=== PATIENT | female | born 1930 | race American Indian/Alaskan Native ===

== ENCOUNTER 2016-06-28 21:47 | Inpatient (IN) | payer MEDICARE ==
[2016-06-28] MEDS ORDERED: BABY ASPIRIN PO ONE (22:07)
--- NOTE | 2016-06-28 22:12 | Emergency Department Report ---
ED Chest Pain HPI - General Chief Complaint: Chest Pain Stated Complaint: CHEST PAIN Time Seen by Provider: 06/28/16 22:00 Source: patient, family, EMS Mode of arrival: Stretcher Limitations: Other (dementia) - History of Present Illness Initial Comments: 86-year-old female presents to the emergency department via EMS for evaluation of chest pain. Patient states she was having chest pain earlier today, but this has resolved. Patient states the pain was located on the left side and did not radiate. Patient is unable to describe the quality of the pain. Patient states that she had no associated shortness of breath, dizziness, diaphoresis, nausea, or vomiting. Family at bedside states the patient was diaphoretic earlier. There are no other complaints. MD Complaint: chest pain -: Gradual, This morning Onset: during rest Pain Location: left chest Pain Radiation: none Severity: moderate Consistency: constant, now resolved Improves With: nothing Worsens With: nothing re: diaphoresis. denies: nausea, vomting, dyspnea Treatments Prior to Arrival: none Aspirin use within the Past 7 Days: (1) Yes - Related Data Home Medications Medication Instructions Recorded Confirmed Last Taken Donepezil [Aricept] 1 tab PO QDAY 04/15/14 06/28/16 06/28/16 Memantine (Nf) [Namenda] 1 tab PO BID 04/15/14 06/28/16 06/28/16 Metoprolol [Lopressor TAB] 1 tab PO BID 04/15/14 06/28/16 06/28/16 Spironolactone 1 tab PO QDAY 04/15/14 06/28/16 06/28/16 hydrALAZINE [Apresoline TAB] 1 tab PO TID 04/15/14 06/28/16 06/28/16 Aspirin [Aspirin BABY CHEW TAB] 162 mg PO QDAY 06/28/16 06/28/16 06/28/16 Levofloxacin [Levaquin TAB] 250 mg PO QDAY 06/28/16 06/28/16 06/28/16 Mirabegron [Myrbetriq] 25 mg PO QDAY 06/28/16 06/28/16 06/28/16 Ondansetron HCl [Ondansetron TAB] 4 mg PO ONCE 06/28/16 06/28/16 06/28/16 Phenazopyridine [Pyridium] 200 mg PO TID 06/28/16 06/28/16 06/28/16 Allergies Allergy/AdvReac Type Severity Reaction Status Date / Time codeine Allergy Unknown Verified 04/15/14 23:48 Penicillins Allergy Unknown Verified 04/15/14 23:48 NIXON score - Nixon Score Age > 65: (1) Yes Aspirin use within the Past 7 Days: (1) Yes 3 or more CAD Risk Factors: (1) Yes 2 or more Angina events in past 24 hrs: (0) No Known CAD with more than 50% Stenosis: (0) No Elevated Cardiac Markers: (0) No ST Deviation Greater than 0.5mm: (0) No NIXON Score: 3 ED Review of Systems ROS: Stated complaint: CHEST PAIN Other details as noted in HPI Comment: All other systems reviewed and negative Constitutional: diaphoresis Cardiovascular: chest pain ED Past Medical Hx - Past Medical History Previous Medical History?: Yes Hx Hypertension: Yes Hx Heart Attack/AMI: Yes Hx Diabetes: Yes Hx Dementia: Yes Additional medical history: CAD - Surgical History Past Surgical History?: Yes Hx Open Heart Surgery: Yes (Triple Bypass Surgery) Hx Cholecystectomy: Yes Additional Surgical History: Thyroid removal, x 2 - Family History Family history: no significant - Social History Smoking Status: Never Smoker Substance Use Type: None - Medications Home Medications: Home Medications Medication Instructions Recorded Confirmed Last Taken Type Donepezil [Aricept] 1 tab PO QDAY 04/15/14 06/28/16 06/28/16 History Memantine (Nf) [Namenda] 1 tab PO BID 04/15/14 06/28/16 06/28/16 History Metoprolol [Lopressor TAB] 1 tab PO BID 04/15/14 06/28/16 06/28/16 History Spironolactone 1 tab PO QDAY 04/15/14 06/28/16 06/28/16 History hydrALAZINE [Apresoline TAB] 1 tab PO TID 04/15/14 06/28/16 06/28/16 History Aspirin [Aspirin BABY CHEW TAB] 162 mg PO QDAY 06/28/16 06/28/16 06/28/16 History Levofloxacin [Levaquin TAB] 250 mg PO QDAY 06/28/16 06/28/16 06/28/16 History Mirabegron [Myrbetriq] 25 mg PO QDAY 06/28/16 06/28/16 06/28/16 History Ondansetron HCl [Ondansetron TAB] 4 mg PO ONCE 06/28/16 06/28/16 06/28/16 History Phenazopyridine [Pyridium] 200 mg PO TID 06/28/16 06/28/16 06/28/16 History ED Physical Exam - General Limitations: No Limitations General appearance: alert, in no apparent distress - Head Head exam: Present: atraumatic, normocephalic - Eye Eye exam: Present: normal appearance, PERRL, EOMI - ENT ENT exam: Present: normal exam, normal orophraynx, mucous membranes moist - Neck Neck exam: Present: normal inspection, full ROM. Absent: tenderness - Respiratory Respiratory exam: Present: normal lung sounds bilaterally. Absent: respiratory distress, chest wall tenderness - Cardiovascular Cardiovascular Exam: Present: regular rate, normal rhythm, normal heart sounds - GI/Abdominal GI/Abdominal exam: Present: soft, normal bowel sounds. Absent: distended, tenderness - Extremities Exam Extremities exam: Present: normal inspection, full ROM. Absent: tenderness - Back Exam Back exam: Present: normal inspection, full ROM. Absent: tenderness - Neurological Exam Neurological exam: Present: alert. Absent: motor sensory deficit - Skin Skin exam: Present: warm, dry, intact ED Course Vital Signs 06/28/16 22:26 Temperature 98.1 F Pulse Rate 61 Respiratory 14 Rate Blood Pressure 173/71 [Left] O2 Sat by Pulse 98 Oximetry ED Medical Decision Making - Lab Data Result diagrams: 06/28/16 22:20 06/28/16 22:20 - EKG Data -: EKG Interpreted by Me EKG shows normal: sinus rhythm, axis, intervals, QRS complexes, ST-T waves Rate: normal - EKG Data When compared to previous EKG there are: previous EKG unavailable Interpretation: normal EKG - Radiology Data Radiology results: image reviewed interpreted by me: Chest x-ray shows no acute cardiopulmonary abnormality. - Medical Decision Making Lab and imaging results reviewed and discussed with the patient. I spoke with Dr. Alex, cardiology. Patient is to be admitted by the hospitalist. - Differential Diagnosis ACS, atypical chest pain, chest wall pain Critical care attestation.: If time is entered above; I have spent that time in minutes in the direct care of this critically ill patient, excluding procedure time. ED Disposition Clinical Impression: Precordial chest pain Disposition: OP ADMITTED IP TO THIS HOSP Is pt being admited?: Yes Condition: Stable Instructions: Chest Pain (ED) Time of Disposition: 23:18
[2016-06-28 22:33] LABS: Basophils % (Auto) 0.4 % (0.0-1.8); Eosinophils % (Auto) 0.1 % (0.0-4.3); Hematocrit 25.8 % (30.3-42.9); Hemoglobin 8.7 gm/dl (10.1-14.3); Mean Corpuscular HGB Conc 34 % (30-34); Mean Corpuscular Hemoglobin 32 pg (28-32); Mean Corpuscular Volume 93 fl (79-97); Platelet Count 147 K/mm3 (140-440); Red Blood Count 2.77 M/mm3 (3.65-5.03); Red Cell Distribution Width 15.1 % (13.2-15.2)
[2016-06-28 22:42] LABS: INR 1.05 (0.87-1.13)
[2016-06-28 22:43] LABS: Partial Thromboplastin Time 30.8 Sec. (24.2-36.6)
[2016-06-28 22:55] LABS: Albumin 3.9 g/dL (3.9-5); Albumin/Globulin Ratio 1.3 %; BUN/Creatinine Ratio 30.58; Bilirubin,Total 0.3 mg/dL (0.1-1.2); Calcium 8.9 mg/dL (8.4-10.2); Chloride 101.7 mmol/L (98-107); Potassium 4.8 mmol/L (3.6-5.0)
[2016-06-28] MEDS ORDERED: TYLENOL ONE (23:49)
[2016-06-28] MEDS ORDERED: MILK OF MAGNESIA PO PRN (23:58)
[2016-06-28] MEDS ORDERED: D50W (25GM) IV PRN (23:58)
[2016-06-28] MEDS ORDERED: DULCOLAX PR PRN (23:58)
[2016-06-28] MEDS ORDERED: ZOFRAN IV PRN (23:58)
[2016-06-28] MEDS ORDERED: TYLENOL PO PRN (23:58)
[2016-06-29] MEDS ORDERED: TYLENOL PO ONE (00:02)
--- NOTE | 2016-06-29 00:02 | History and Physical Report ---
History of Present Illness Date of examination: 06/28/16 History of present illness: 86-year-old woman with a history of coronary artery disease, hypertension, diabetes, A. fib, dementia was brought to the emergency room with complaints of chest pain. Pain is in the epigastric area which started today, she is unable to describe the pain, it is been intermittent in nature, unable to say how long it lasts for, intensity 5/10, no radiation and she cannot identify exacerbating or relieving factors. She denies nausea vomiting, shortness breath, diaphoresis or palpitation Patient denies cough, abdominal pain, hematochezia, dysuria, frequency, focal weakness, dysarthria, fever chills, polydipsia polyuria, hot or cold intolerance , easy bruisability, or rash or bleeding from mucosal membrane, rhinorrhea, epistaxis, earache, tinnitus, blurry vision, eye discharge, anxiety, depression. Other review of systems negative PAST SURGICAL HISTORY: , CABG, thyroidectomy, cholecystectomy SOCIAL HISTORY: Denies alcohol, tobacco, drugs FAMILY HISTORY: Hypertension, diabetes Medications and Allergies Allergies Allergy/AdvReac Type Severity Reaction Status Date / Time codeine Allergy Unknown Verified 04/15/14 23:48 Penicillins Allergy Unknown Verified 04/15/14 23:48 Home Medications Medication Instructions Recorded Confirmed Last Taken Type Donepezil [Aricept] 1 tab PO QDAY 04/15/14 06/28/16 06/28/16 History Memantine (Nf) [Namenda] 1 tab PO BID 04/15/14 06/28/16 06/28/16 History Metoprolol [Lopressor TAB] 1 tab PO BID 04/15/14 06/28/16 06/28/16 History Spironolactone 1 tab PO QDAY 04/15/14 06/28/16 06/28/16 History hydrALAZINE [Apresoline TAB] 1 tab PO TID 04/15/14 06/28/16 06/28/16 History Aspirin [Aspirin BABY CHEW TAB] 162 mg PO QDAY 06/28/16 06/28/16 06/28/16 History Levofloxacin [Levaquin TAB] 250 mg PO QDAY 06/28/16 06/28/16 06/28/16 History Mirabegron [Myrbetriq] 25 mg PO QDAY 06/28/16 06/28/16 06/28/16 History Ondansetron HCl [Ondansetron TAB] 4 mg PO ONCE 06/28/16 06/28/16 06/28/16 History Phenazopyridine [Pyridium] 200 mg PO TID 06/28/16 06/28/16 06/28/16 History Active Meds: Active Medications Aspirin (Baby Aspirin) 162 mg PO QDAY [facility] Donepezil HCl (Aricept) 5 mg PO QDAY [facility] Metoprolol Tartrate (Lopressor) 25 mg PO BID [facility] Miscellaneous Medication (Memantine (Nf) [Namenda (Nf)]) 1 tab PO BID [facility] Miscellaneous Medication (Mirabegron [Myrbetriq]) 25 mg PO QDAY [facility] Exam - Physical Exam Narrative exam: Gen. appearance: Patient lying in bed, no apparent distress HEENT: Normocephalic, atraumatic, pupils equally round and reactive to light, extraocular movement intact, and no sclericterus,. No JVD or thyromegaly or nodule,neck supple, no carotid bruit ,mucous membranes moist, no exudate or erythema Heart: S1, S2, regular rate and rhythm Lungs: Clear to auscultation bilaterally, breathing comfortable Abdomen: Positive bowel sounds, nontender, nondistended, no organomegaly Extremity: No edema, cyanosis, clubbing Skin: No rash, nodules, warm, dry Neuro: Oriented 3, cranial nerves II-12 intact, speech is fluent, motor and sensory intact - Constitutional Vitals: Temp Pulse Resp BP Pulse Ox 98.1 F 61 14 173/71 99 06/28/16 22:26 06/28/16 22:26 06/28/16 22:26 06/28/16 22:26 06/28/16 22:26 Results - Labs CBC & Chem 7: 06/28/16 22:20 06/28/16 22:20 Labs: Abnormal lab results 06/28/16 06/28/16 Range/Units 22:20 22:20 RBC 2.77 L (3.65-5.03) M/mm3 Hgb 8.7 L (10.1-14.3) gm/dl Hct 25.8 L (30.3-42.9) % Lymph % (Auto) 9.2 L (13.4-35.0) % [place] % (Auto) 9.8 H (0.0-7.3) % Lymph # 0.8 L (1.2-5.4) K/mm3 [place] # 0.9 H (0.0-0.8) K/mm3 Seg Neutrophils % 80.5 H (40.0-70.0) % Sodium 136 L (137-145) mmol/L Carbon Dioxide 20 L (22-30) mmol/L BUN 52 H (7-17) mg/dL Creatinine 1.7 H (0.7-1.2) mg/dL Glucose 140 H (65-100) mg/dL - Imaging and Cardiology EKG: image reviewed Chest x-ray: image reviewed Assessment and Plan Unstable angina Coronary artery disease Hypertension Diabetes A. fib Chronic kidney disease Admit to medicine Check cardiac enzymes, liver profile, consult cardiology Check fingersticks and initiate insulin sliding scale Continue appropriate outpatient medication, start DVT prophylaxis
--- NOTE | 2016-06-29 00:10 | Admit Criteria Form ---
Admission Criteria Documentation: CHEST PAIN Clinical Indications for Admission to Inpatient Care (Place 'X' for any and all applicable criteria): Admission is indicated for chest pain and ANY ONE of the following(1)(2)(3)(4)(5 ): [ ]I. Angina with acute coronary syndrome (Also use Myocardial Infarction or Angina guideline) [ ]II. Hemodynamic instability [ ]III. Angina needing acute intervention as indicated by ALL of the following( 11)(12): [ ]a) Unstable angina is present as indicated by angina that is ANY ONE of the following: [ ]i) New onset [ ]ii) Nocturnal [ ]iii) Prolonged at rest [ ]iv) Progressive [ ]b) Angina warrants acute intervention as indicated by ANY ONE of the following: [ ]i) Recurrent angina (e.g, not responding as previously to treatment) [ ]ii) Angina at rest or with low-level activities despite initial medical therapy [ ]iii) New or presumably new ST-segment depression on ECG [ ]iv) Signs or symptoms of heart failure (eg, dyspnea, pulmonary edema) [ ]v) New or worsening mitral regurgitation [ ]vi) Hemodynamic instability [ ]vii) Dangerous arrhythmia (eg, sustained ventricular tachycardia) [ ]viii) History of percutaneous coronary intervention within 6 months [ ]ix) History of coronary artery bypass graft surgery [ ]x) NXION risk score of 2 or greater[A] [ ]xi) History of Diabetes(14) [ ]xii) High-risk cardiac ischemia findings on noninvasive testing (e.g, echocardiogram, treadmill testing, nuclear scan) [ ]xiii) Chronic renal insufficiency (ie, estimated GFR less than 60 mL/min/1.732m) [ ]xiv) Left ventricular ejection fraction less than 40% [ ]IV. Evidence of NH (eg, cardiac biomarkers positive, ST-segment elevation on ECG) also use Myocardial Infarction Criteria Form. [ ]V. Pulmonary edema [ ]. Respiratory distress [ ]VII. Chest pain indicative of serious diagnosis other than coronary artery disease (eg, aortic dissection) [ ]VIII. Contraindications and/or Inappropriate clinical situations for Observational Care in patients with Chest Pain, when ANY ONE of the following is required: [ ]a) Patient with risk factor for pulmonary embolism, acute coronary syndrome and myocardial infarction (18) [ ]b) Patient with Pulmonary embolism require an average LOS of 4.3 days, therefore emergency department observation management is inappropriate 18,23 [ ]c) Painful condition/s in the elderly, have the highest rate of recidivism after emergency department observation management (10.8%) 20,21,22 [ ]d) Elevated cardiac biomarker requires intensive and exhaustive care (19) [X ]IX. General contraindications and/or Inappropriate clinical situations for Observational Care in patients with Chest Pain, when ANY ONE of the following is required: [ X]a) Prediction of prolongation of LOS based on ANY ONE of the following may be considered as a contraindication for observational care 2, 3, 4, 5, 6, 7, 8, 9, 10, 11 [X ]i) Age > 65 yrs. [ ]ii) Patient arriving by ambulance [ ]iii) Patient with high acuity [ ]iv) Patient requiring vital sign monitoring [ X]v) Patient on IV medication [ ]b) Systolic blood pressures 180mmHg 3,12 [ ]c) Patient with altered mental status including delirium and other alteration of consciousness, (3) [ ]d) Patient whose discharge disposition will be to a snf home or rehabilitation home should not be managed in Emergency Department Observation Unit. CMS rule requires 3 days hospital stay before such placement. 3,13 [ ]e) Patient with failure to thrive due to broad array of etiologies 3,16,17 [ ]f) Inability to ambulate 3,14 Extended stay beyond goal length of stay may be needed for (1)(28): [ ]a) Specific condition diagnosed after evaluation (eg, pulmonary embolism, aortic dissection) [ ]b) Unstable angina [ ]c) Continued suspicion of acute coronary syndrome with inability to complete needed cardiac evaluation (eg, patient clinically unable to undergo stress testing) [ ]d) Myocardial infarction (Contents from ANGINA and CHEST PAIN clinical indications for admission to inpatient care have been integrated in this form) The original [employer] content created by [employer] has been revised. The portions of the content which have been revised are identified through the use of italic text or in bold, and [facility] [employer] has neither reviewed nor approved the modified material. All other unmodified content is copyright [employer]. Please see references footnoted in the original [facility] edition 2016 Admission Criteria Met: Yes
[2016-06-29 03:41] LABS: Creatine Kinase MB 3.8 ng/mL (0.0-4.0)
[2016-06-29] MEDS: NOVOLOG SUB-Q SCH ×4 (07:30→22:07)
--- NOTE | 2016-06-29 08:19 | XRay Report ---
PORTABLE CHEST INDICATION: Chest pain. COMPARISON: 08/17/2015 FINDINGS: Portable, frontal chest radiograph demonstrates increased crowding of lung markings, left more than right. Subtle hazy blunting of the costophrenic angles, right more than left also not excluded for trace pleural effusions. Minimal fluid or thickening along the right minor fissure again noted as also post CABG changes, cardiomediastinal silhouette, aortic knob calcifications and demineralized bones with few degenerative changes. EKG leads. CONCLUSION: Slight pulmonary vascular congestion not entirely excluded developing versus technical, as described. Please also correlate clinically and on future, PA and lateral radiographs, if obtainable. Thank you for the opportunity to participate in this patient's care.
[2016-06-29] MEDS ORDERED: NON-FORMULARY (Mirabegron [Myrbetriq] 25 MG) PO SCH (10:00)
[2016-06-29] MEDS: LOPRESSOR PO SCH ×2 (10:00→22:05)
[2016-06-29] MEDS ORDERED: MEMANTINE PO SCH (10:00)
[2016-06-29 10:02] LABS: Creatine Kinase MB 3.8 ng/mL (0.0-4.0)
[2016-06-29] MEDS: LOVENOX SUB-Q SCH (10:34)
[2016-06-29] MEDS: ARICEPT PO SCH (10:34)
[2016-06-29] MEDS: BABY ASPIRIN PO SCH (10:35)
[2016-06-29] MEDS: NAMENDA XR PO SCH (10:41)
--- NOTE | 2016-06-29 11:47 | Consultation ---
History of Present Illness Consult date: 06/29/16 Consult reason: chest pain History of present illness: This is an 86yr old woman with a history of advance dementia who is admitted with chest pain. History unobtainable. Daughter at bedside reports the patient was clinching her chest and complaining of chest pain and shortness of breath. EMS was called and the patient was brought in for evaluation. No acute ischemic changes on her ECG. Cycled cardiac enzymes are normal. Noted a HCT of 25 and creatinine of 1.7 on initial workup in the ED. Cardiac consultation requested for chest pain evaluation. Medications and Allergies Allergies Allergy/AdvReac Type Severity Reaction Status Date / Time codeine Allergy Unknown Verified 04/15/14 23:48 Penicillins Allergy Unknown Verified 04/15/14 23:48 Home Medications Medication Instructions Recorded Confirmed Last Taken Type Donepezil [Aricept] 1 tab PO QDAY 04/15/14 06/28/16 06/28/16 History Memantine (Nf) [Namenda] 1 tab PO BID 04/15/14 06/28/16 06/28/16 History Metoprolol [Lopressor TAB] 1 tab PO BID 04/15/14 06/28/16 06/28/16 History Spironolactone 1 tab PO QDAY 04/15/14 06/28/16 06/28/16 History hydrALAZINE [Apresoline TAB] 1 tab PO TID 04/15/14 06/28/16 06/28/16 History Aspirin [Aspirin BABY CHEW TAB] 162 mg PO QDAY 06/28/16 06/28/16 06/28/16 History Levofloxacin [Levaquin TAB] 250 mg PO QDAY 06/28/16 06/28/16 06/28/16 History Mirabegron [Myrbetriq] 25 mg PO QDAY 06/28/16 06/28/16 06/28/16 History Ondansetron HCl [Ondansetron TAB] 4 mg PO ONCE 06/28/16 06/28/16 06/28/16 History Phenazopyridine [Pyridium] 200 mg PO TID 06/28/16 06/28/16 06/28/16 History Active Meds: Active Medications Acetaminophen (Tylenol) 650 mg PO Q4H PRN PRN Reason: Pain MILD(1-3)/Fever >100.5/[place] Aspirin (Baby Aspirin) 162 mg PO QDAY [facility] Last Admin: 06/29/16 10:35 Dose: 162 mg Aspirin (Aspirin) 325 mg PO QDAY [facility] Bisacodyl (Dulcolax) 10 mg UT QDAY PRN PRN Reason: Constipation unrelieved by MOM Dextrose (D50w (25gm)) 50 ml IV PRN PRN PRN Reason: Hypoglycemia Donepezil HCl (Aricept) 5 mg PO QDAY [facility] Last Admin: 06/29/16 10:34 Dose: 5 mg Enoxaparin Sodium (Lovenox) 30 mg SUB-Q QDAY [facility] Insulin Aspart (Novolog) 0 units SUB-Q ACHS [facility] PRN Reason: Protocol Magnesium Hydroxide (Milk Of Magnesia) 30 ml PO Q4H PRN PRN Reason: Constipation Memantine (Namenda Xr) 14 mg PO DAILY [facility] Last Admin: 06/29/16 10:41 Dose: 14 mg Metoprolol Tartrate (Lopressor) 25 mg PO BID [facility] Ondansetron HCl (Zofran) 4 mg IV Q8H PRN PRN Reason: N/V unrelieved by Reglan Physical Examination Vital Signs Temp Pulse Resp BP Pulse Ox 98.1 F 61 14 173/71 99 06/28/16 22:26 06/28/16 22:26 06/28/16 22:26 06/28/16 22:26 06/28/16 22:26 General appearance: no acute distress HEENT: Positive: PERRL Neck: Positive: trachea midline Cardiac: Positive: Reg Rate and Rhythm Results 06/28/16 22:20 06/28/16 22:20 Cardiac Enzymes 06/29/16 06/29/16 Range/Units 02:59 08:57 CK-MB (CK-2) 3.8 3.8 (0.0-4.0) ng/mL Assessment and Plan Chest pain, atypical no acute ischemic changes on ECG normal Shyann Acute on chronic renal failure Anemia Hypertension Advance Dementia Hx of CAD s/p 3 way CABG 2006 Plan: Echocardiogram for LVEF assessment. Optimal medical therapy for her coronary artery disease. Otherwise, conservative cardiac management.
[2016-06-29 16:31] LABS: BUN/Creatinine Ratio 26.66; Chloride 103.1 mmol/L (98-107); Potassium 4.4 mmol/L (3.6-5.0)
--- NOTE | 2016-06-29 16:45 | Progress Note ---
Assessment and Plan Assessment and plan: Chest pain - Cardiology consult appreciated - Echo reading is pending - Cardiology recommended conservative management given her significant dementia and comorbid conditions SIRENA - Gentle hydration Hypertension - Resume home medications Anemia - Asymptomatic and stable UTI - UA is ordered - IV Ceftriaxone is ordered empirically Prophylaxis Disposition - Possible discharge tomorrow if stable Plan of care was discussed with her daughter and the patient. History Interval history: Patient denied chest pain, shortness of breath. Patient has severe dementia. The daughter was in the room during examination and she said the patient has urinary frequency and was started on Levaquin as an outpatient but she took only 1 dose and then admitted. Hospitalist Physical - Physical exam Narrative exam: Not in cardiopulmonary distress. Vital signs as documented. Head exam is unremarkable. No scleral icterus . Neck is without jugular venous distension, thyromegaly, or carotid bruits. Lungs are clear to auscultation. Cardiac exam reveals regular rate and Rhythm. First and second heart sounds normal. No murmurs, rubs or gallops. Abdominal exam reveals normal bowel sounds, no masses, no organomegaly and no aortic enlargement. Extremities are nonedematous and both femoral and pedal pulses are normal. FUNCTIONAL SUPPORT ANALYST: Patient has severe dementia. - Constitutional Vitals: Temp Pulse Resp BP Pulse Ox 98 F 57 L 13 170/79 100 06/29/16 12:00 06/29/16 10:00 06/29/16 04:00 06/29/16 04:00 06/29/16 06:13 General appearance: Present: no acute distress Results - Labs CBC & Chem 7: 06/28/16 22:20 06/29/16 15:55 Labs: Laboratory Last Values WBC 9.0 K/mm3 (4.5-11.0) 06/28/16 22:20 RBC 2.77 M/mm3 (3.65-5.03) L 06/28/16 22:20 Hgb 8.7 gm/dl (10.1-14.3) L 06/28/16 22:20 Hct 25.8 % (30.3-42.9) L 06/28/16 22:20 MCV 93 fl (79-97) 06/28/16 22:20 MCH 32 pg (28-32) 06/28/16 22:20 MCHC 34 % (30-34) 06/28/16 22:20 RDW 15.1 % (13.2-15.2) 06/28/16 22:20 Plt Count 147 K/mm3 (140-440) 06/28/16 22:20 Lymph % (Auto) 9.2 % (13.4-35.0) L 06/28/16 22:20 [place] % (Auto) 9.8 % (0.0-7.3) H 06/28/16 22:20 Eos % (Auto) 0.1 % (0.0-4.3) 06/28/16 22:20 Baso % (Auto) 0.4 % (0.0-1.8) 06/28/16 22:20 Lymph # 0.8 K/mm3 (1.2-5.4) L 06/28/16 22:20 [place] # 0.9 K/mm3 (0.0-0.8) H 06/28/16 22:20 Eos # 0.0 K/mm3 (0.0-0.4) 06/28/16 22:20 Baso # 0.0 K/mm3 (0.0-0.1) 06/28/16 22:20 Seg Neutrophils % 80.5 % (40.0-70.0) H 06/28/16 22:20 Seg Neutrophils # 7.3 K/mm3 (1.8-7.7) 06/28/16 22:20 PT 13.6 Sec. (12.2-14.9) 06/28/16 22:20 INR 1.05 (0.87-1.13) 06/28/16 22:20 APTT 30.8 Sec. (24.2-36.6) 06/28/16 22:20 Sodium 140 mmol/L (137-145) 06/29/16 15:55 Potassium 4.4 mmol/L (3.6-5.0) 06/29/16 15:55 Chloride 103.1 mmol/L (98-107) 06/29/16 15:55 Carbon Dioxide 18 mmol/L (22-30) L 06/29/16 15:55 Anion Gap 23 mmol/L 06/29/16 15:55 BUN 48 mg/dL (7-17) H 06/29/16 15:55 Creatinine 1.8 mg/dL (0.7-1.2) H 06/29/16 15:55 Estimated GFR 32 ml/min 06/29/16 15:55 BUN/Creatinine Ratio 26.66 % 06/29/16 15:55 Glucose 71 mg/dL (65-100) 06/29/16 15:55 Calcium 9.0 mg/dL (8.4-10.2) 06/29/16 15:55 Total Bilirubin 0.3 mg/dL (0.1-1.2) 06/28/16 22:20 AST 23 units/L (5-40) 06/28/16 22:20 ALT 12 units/L (7-56) 06/28/16 22:20 Alkaline Phosphatase 41 units/L (35-129) 06/28/16 22:20 Total Creatine Kinase 114 units/L (30-135) 06/29/16 08:57 CK-MB (CK-2) 3.8 ng/mL (0.0-4.0) 06/29/16 08:57 CK-MB (CK-2) Rel Index 3.3 (0-4) 06/29/16 08:57 Troponin T 0.012 ng/mL (0.00-0.029) 06/29/16 08:57 Total Protein 7.0 g/dL (6.3-8.2) 06/28/16 22:20 Albumin 3.9 g/dL (3.9-5) 06/28/16 22:20 Albumin/Globulin Ratio 1.3 % 06/28/16 22:20
[2016-06-29] MEDS ORDERED: LEVAQUIN PO SCH (20:00)
[2016-06-29] MEDS ORDERED: LEVAQUIN PO ONE (21:00)
[2016-06-29] MEDS: APRESOLINE PO SCH (22:06)
[2016-06-29 23:24] LABS: Bilirubin,Urine NEG (Negative); Blood,Urine SM (Negative); Ketones,Urine NEG (Negative); Leukocyte Esterase,Urine SM (Negative); Mucus,Urine FEW /HPF; Nitrite,Urine POS (Negative)
[2016-06-30 05:34] LABS: Basophils % (Auto) 0.1 % (0.0-1.8); Hematocrit 23.3 % (30.3-42.9); Hemoglobin 7.6 gm/dl (10.1-14.3); Mean Corpuscular HGB Conc 33 % (30-34); Mean Corpuscular Hemoglobin 30 pg (28-32); Mean Corpuscular Volume 93 fl (79-97); Platelet Count 155 K/mm3 (140-440); Red Blood Count 2.51 M/mm3 (3.65-5.03); Red Cell Distribution Width 14.9 % (13.2-15.2); White Blood Count 7.7 K/mm3 (4.5-11.0)
[2016-06-30 05:54] LABS: BUN/Creatinine Ratio 32.85; Calcium 8.6 mg/dL (8.4-10.2); Chloride 103.6 mmol/L (98-107); Potassium 4.5 mmol/L (3.6-5.0)
[2016-06-30] MEDS: APRESOLINE PO SCH ×2 (08:32→13:13)
[2016-06-30] MEDS: NOVOLOG SUB-Q SCH ×4 (08:33→16:33)
--- NOTE | 2016-06-30 08:38 | Discharge Summary ---
Providers - Providers Date of Admission: 06/28/16 23:58 Date of discharge: 06/30/16 Attending physician: MADI DILLARD MD Primary care physician: VIDEO GAME SCRIPT WRITER Hospitalization Reason for admission: chest pain Condition: Stable Pertinent studies: Echo: pulmonary HTN Hospital course: 86-year-old woman with a history of coronary artery disease, hypertension, diabetes, A. fib, dementia was brought to the emergency room with complaints of chest pain. Pain is in the epigastric area, she was unable to describe the pain , it has been intermittent in nature, unable to say how long it lasts for, intensity 5/10, no radiation. Patient was admitted and cardiac enzymes and EKG were done. Cardiology consulted given her age, comorbid conditions and severe dementia, they recommended to manage her conservatively. Echo was done and showed elevated pulmonary pressure. Patient denied any symptoms while in-her stay. Patient symptoms of UTI and empirically treated with antibiotics. Patient has history of A. fib but given her old age and dementia I deferred to anticoagulate her. I have discussed this with her son and daughter both agreed with the plan. Patient was stable at the time of discharge. Disposition: DISCHARGED TO HOME OR SELFCARE Time spent for discharge: 31 minutes - Discharge Diagnoses (1) Precordial chest pain Status: Acute (2) Fall from bed Status: Acute Qualifiers: Encounter type: E Core Measure Documentation - Palliative Care Palliative Care/ Comfort Measures: Not Applicable - Core Measures Any of the following diagnoses?: none Exam - Physical Exam Narrative exam: Not in cardiopulmonary distress. Vital signs as documented. Head exam is unremarkable. No scleral icterus . Neck is without jugular venous distension, thyromegaly, or carotid bruits. Lungs are clear to auscultation. Cardiac exam reveals regular rate and Rhythm. First and second heart sounds normal. No murmurs, rubs or gallops. Abdominal exam reveals normal bowel sounds, no masses, no organomegaly and no aortic enlargement. Extremities are nonedematous and both femoral and pedal pulses are normal. PLANT MECHANIC: Patient has severe dementia. - Constitutional Vitals: Temp Pulse Resp BP Pulse Ox 98.1 F 61 20 170/84 98 06/30/16 04:00 06/30/16 04:13 06/30/16 04:00 06/30/16 04:00 06/30/16 04:00 Plan Activity: no restrictions (please D/C after seen by cardiology.) Weight Bearing Status: Full Weight Bearing Diet: low cholesterol Follow up with: PRIMARY CAREMD [Primary Care Provider] - 7 Days NORMA KELLY MD [Staff Physician] - 14 Days Prescriptions: amLODIPine [Norvasc] 10 mg PO DAILY #30 tab Levofloxacin [Levaquin TAB] 250 mg PO QDAY #3 tablet
[2016-06-30] MEDS: NAMENDA XR PO SCH (09:38)
[2016-06-30] MEDS: BABY ASPIRIN PO SCH (09:41)
[2016-06-30] MEDS: ARICEPT PO SCH (09:42)
[2016-06-30] MEDS: LOVENOX SUB-Q SCH (09:43)
[2016-06-30] MEDS: LOPRESSOR PO SCH (09:43)
[2016-06-30] MEDS ORDERED: ASPIRIN PO SCH (10:00)
[2016-06-30] MEDS ORDERED: LEVAQUIN PO SCH (10:00)
[2016-06-30] MEDS ORDERED: ALDACTONE PO SCH (10:00)
--- NOTE | 2016-06-30 11:12 | Progress Note ---
Assessment and Plan 1. Coronary artery disease stable 2. Status post CABG left ventricular ejection fraction of 55-60% 3. Chronic cor pulmonale with severe pulmonary hypertension estimated PA systolic pressure 79 mmHg 4. Dementia 5. Chronic kidney disease stage III 6. Anemia secondary to chronic disease Plan. Patient not to candidate for invasive management continue conservative management. Consider chronic Xarelto therapy Subjective Date of service: 07/07/16 Principal diagnosis: CAD Interval history: Patient is demented but denies any cardiac symptoms. Objective Vital Signs Temp Pulse Pulse Resp BP BP Pulse Ox 06/30/16 10:00 96 06/30/16 09:43 68 177/84 06/30/16 09:42 68 177/84 06/30/16 08:32 193/91 06/30/16 04:13 61 06/30/16 04:00 98.1 F 62 20 170/84 98 06/30/16 00:00 98.2 F 59 L 20 174/85 96 06/29/16 20:04 96 06/29/16 20:00 98.1 F 20 192/93 97 06/29/16 16:17 162/91 06/29/16 14:00 65 19 170/136 97 06/29/16 12:00 98 F 58 L 25 H 170/136 99 - Physical Examination HEENT: Positive: PERRL Neck: Positive: trachea midline Cardiac: Positive: Regular Rate, S1/S2, PMI, Laterally Displaced Lungs: Positive: clear to auscultation, No Wheeze, Rales, Rhonchi Abdomen: Positive: Soft, Active Bowel Sounds /Rectal: No Masses Extremities: Absent: edema - Labs and Meds CBC 06/30/16 Range/Units 04:47 WBC 7.7 (4.5-11.0) K/mm3 RBC 2.51 L (3.65-5.03) M/mm3 Hgb 7.6 L (10.1-14.3) gm/dl Hct 23.3 L (30.3-42.9) % Plt Count 155 (140-440) K/mm3 Lymph # 0.9 L (1.2-5.4) K/mm3 [place] # 0.7 (0.0-0.8) K/mm3 Eos # 0.0 (0.0-0.4) K/mm3 Baso # 0.0 (0.0-0.1) K/mm3 Comprehensive Metabolic Panel 06/29/16 06/30/16 Range/Units 15:55 04:47 Sodium 140 140 (137-145) mmol/L Potassium 4.4 4.5 (3.6-5.0) mmol/L Chloride 103.1 103.6 (98-107) mmol/L Carbon Dioxide 18 L 20 L (22-30) mmol/L BUN 48 H 46 H (7-17) mg/dL Creatinine 1.8 H 1.4 H (0.7-1.2) mg/dL Glucose 71 84 (65-100) mg/dL Calcium 9.0 8.6 (8.4-10.2) mg/dL - Imaging and Cardiology EKG: image reviewed - EKG Sinus rhythms and dysrhythmias: sinus rhythm
[2016-06-30] MEDS ORDERED: APRESOLINE IV PRN (14:03)
[2016-06-30] MEDS ORDERED: NORVASC PO ONE (14:30)
[2016-06-30] MEDS ORDERED: APRESOLINE IV ONE (17:00)
[2016-06-30 17:22] VITALS: BP 141/70
--- NOTE | 2016-07-06 08:29 | Query- Present on Admission ---
Tavares Rose___Dominick Date:____07/06/16 Wood [employer]ater/CDS:___Jimmy / Suri Phone#:___[phone] Exercise your independent professional judgment when responding to this query. Questions asked do not imply a particular answer is desired or expected. We greatly appreciate your clarification on this issue. Clinical Documentation States: 86 year old female was admitted on 06/28/16. The discharge summary states " Fall from bed Status: Acute Qualifiers: Encounter type: E " Clinical Findings Show: Based on the above clinical scenario and your knowledge of the patient's case please clarify if the diagnosis stated below was present on admission: Diagnosis: ____Fall Present on admission : [ x] Yes (Y) [ ] Clinically undeterminable(W) [ ] No(N) Please also document response in your Progress Notes and/or Discharge Summary and indicate if the condition was present on admission. RAMONE
== END 2016-06-30 18:40 | disposition home or self-care (01) | DRG 683 ==
LOC: ED 21:47 → 4A 23:58 → CC1 06-29 04:02 → 4A 06-29 21:49
PROVIDERS: ADMIT Internal Medicine; ATTEND Internal Medicine
DX: N17.9 Acute kidney failure, unspecified (principal); I25.110 Atherosclerotic heart disease of native coronary artery with unstable angina pectoris; N39.0 Urinary tract infection, site not specified; E11.22 Type 2 diabetes mellitus with diabetic chronic kidney disease; I12.9 Hypertensive chronic kidney disease with stage 1 through stage 4 chronic kidney disease, or unspecified chronic kidney disease; I27.2 Other secondary pulmonary hypertension; N18.3 Chronic kidney disease, stage 3 (moderate); F03.90 Unspecified dementia, unspecified severity, without behavioral disturbance, psychotic disturbance, mood disturbance, and anxiety; D63.8 Anemia in other chronic diseases classified elsewhere; I48.91 Unspecified atrial fibrillation; Z88.6 Allergy status to analgesic agent; Z88.0 Allergy status to penicillin; Z79.899 Other long term (current) drug therapy; I25.2 Old myocardial infarction; Z95.1 Presence of aortocoronary bypass graft; Z90.49 Acquired absence of other specified parts of digestive tract; Z83.3 Family history of diabetes mellitus; Z82.49 Family history of ischemic heart disease and other diseases of the circulatory system
CPT/HCPCS: 36415; 71010; 80048; 80053; 81001; 82550; 82553; 82962; 84484; 85025; 85610; 85730; 93005; 93010; 93306; J0360; J1650; J1815

== ENCOUNTER 2017-05-23 09:54 | Outpatient (CLI) | payer MEDICARE ==
[2017-05-23 10:18] LABS: Hematocrit 23.6 % (30.3-42.9); Hemoglobin 7.5 gm/dl (10.1-14.3); Mean Corpuscular HGB Conc 32 % (30-34); Mean Corpuscular Hemoglobin 28 pg (28-32); Mean Corpuscular Volume 90 fl (79-97); Platelet Count 164 K/mm3 (140-440); Red Blood Count 2.64 M/mm3 (3.65-5.03); Red Cell Distribution Width 17.4 % (13.2-15.2)
[2017-05-23 10:32] LABS: Albumin 3.7 g/dL (3.9-5); BUN/Creatinine Ratio 26; Blood Urea Nitrogen 26 mg/dL (7-17); Calcium 8.1 mg/dL (8.4-10.2); Hemolysis Index 6
== END 2017-05-23 09:55 | disposition home or self-care (01) ==
LOC: LAB 09:54
PROVIDERS: ATTEND Internal Medicine
DX: R94.4 Abnormal results of kidney function studies (principal); I11.0 Hypertensive heart disease with heart failure; I50.9 Heart failure, unspecified; I48.91 Unspecified atrial fibrillation
CPT/HCPCS: 36415; 80048; 82040; 84100; 85027